=== PATIENT | female | born 1980 | race Hispanic/Latino ===

== ENCOUNTER 2017-05-28 15:07 | Emergency (ER) | payer MEDICAID ==
[2017-05-28 15:07] VITALS: BMI 20.7
[2017-05-28 15:12] VITALS: BP 144/90; PULSE 122; RESP 16; TEMP 98.3; O2SAT 94
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
== END 2017-05-28 17:10 | disposition home or self-care (01) ==
LOC: H.ER 15:07
DX: F43.20 Adjustment disorder, unspecified (principal); K50.90 Crohn's disease, unspecified, without complications; Z88.0 Allergy status to penicillin

== ENCOUNTER 2017-05-30 06:24 | Inpatient (IN) | payer MEDICAID ==
[2017-05-30 06:24] VITALS: BMI 20.7
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
[2017-05-30 08:36] LABS: BARBITURATES, UR POSITIVE (NEGATIVE); BENZODIAZEPINES, UR NEGATIVE (NEGATIVE); OPIATES, UR NEGATIVE (NEGATIVE); PHENCYCLIDINE, UR NEGATIVE (NEGATIVE)
[2017-05-30 08:37] LABS: ALB/GLOB RATIO 1.5 (1.0-2.1); ALBUMIN 4.2 g/dL (3.5-5.0); ALT/SGPT 33 U/L (9-52); AST/SGOT 23 U/L (14-36); BLOOD UREA NITROGEN 8 mg/dl (7-17); CALCIUM 8.6 mg/dL (8.4-10.2); GFR AFRICAN-AMERICAN > 60; GFR NON-AFRICAN AMERICAN > 60
[2017-05-30 08:40] LABS: BASO # 0.1 K/uL (0.0-0.2); BASO % 1.3 % (0.0-2.0); EOS % 0.1 % (0.0-4.0); HEMOGLOBIN 13.7 g/dL (12.0-16.0); LYMPH # 0.8 K/uL (1.0-4.3); MEAN CELL VOLUME 96.7 fl (81.0-99.0); MEAN CORPUSCULAR HEMOGLOBIN 33.5 pg (27.0-31.0); MEAN CORPUSCULAR HGB CONC 34.6 g/dL (33.0-37.0); MEAN PLATELET VOLUME 6.9 fl (7.2-11.7); MONO # 0.4 K/uL (0.0-0.8); MONO % 6.3 % (0.0-10.0); NEUT # 4.5 K/uL (1.8-7.0); NEUT % 78.3 % (50.0-75.0); NRBC % 0.1 % (0.0-0.0); RBC 4.1 Mil/uL (3.80-5.20); RED CELL DISTRIBUTION WIDTH 12.8 % (11.5-14.5); WHITE BLOOD COUNT 5.8 K/uL (4.8-10.8)
[2017-05-30 11:30] VITALS: O2SAT 100
--- NOTE | 2017-05-30 11:35 | CARD ---
APPROVED REPORT EKG Measurement Heart [id number] <Conclusion> Sinus rhythm with premature atrial complexes Abnormal QRS-T angle, consider primary T wave abnormality Abnormal ECG
[2017-05-30] MEDS ORDERED: DiphenhydrAMINE 50 mg/ml Inj IM PRN (13:15)
[2017-05-30] MEDS ORDERED: Alum-Mag Hydrox-Simethicone Susp (30 mL) PO PRN (13:15)
[2017-05-30] MEDS ORDERED: Magnesium Hydroxide Susp 30 ml UD PO PRN (13:15)
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
[2017-05-30] MEDS: Risperidone M tab 0.5MG PO SCH (15:41)
[2017-05-30] MEDS ORDERED: Risperidone M tab 0.5MG PO SCH (22:00)
[2017-05-30 22:07] LABS: SQUAMOUS EPITHIAL 3 /hpf (0-5); URINE BILIRUBIN NEGATIVE (NEGATIVE); URINE BLOOD NEGATIVE (NEGATIVE); URINE CLARITY SLIGHTY-CLOUDY (Clear); URINE COLOR YELLOW (YELLOW); URINE GLUCOSE (UA) NEG (Normal); URINE LEUKOCYTE ESTERASE NEG Leu/uL (Negative); URINE PROTEIN NEGATIVE (NEGATIVE)
[2017-05-31 06:13] LABS: BASO % 0.8 % (0.0-2.0); EOS % 0.3 % (0.0-4.0); HEMOGLOBIN 14.3 g/dL (12.0-16.0); LYMPH # 1.1 K/uL (1.0-4.3); LYMPH % 17.9 % (20.0-40.0); MEAN CELL VOLUME 98.4 fl (81.0-99.0); MEAN CORPUSCULAR HEMOGLOBIN 32.7 pg (27.0-31.0); MEAN CORPUSCULAR HGB CONC 33.3 g/dL (33.0-37.0); MEAN PLATELET VOLUME 6.7 fl (7.2-11.7); MONO # 0.5 K/uL (0.0-0.8); MONO % 8.7 % (0.0-10.0); NEUT # 4.3 K/uL (1.8-7.0); NEUT % 72.3 % (50.0-75.0); NRBC % 0.1 % (0.0-0.0); RBC 4.37 Mil/uL (3.80-5.20); RED CELL DISTRIBUTION WIDTH 12.9 % (11.5-14.5); WHITE BLOOD COUNT 5.9 K/uL (4.8-10.8)
[2017-05-31 06:28] LABS: LDL CHOLESTEROL 99 mg/dL (0-129)
[2017-05-31 06:34] LABS: ALB/GLOB RATIO 1.3 (1.0-2.1); ALBUMIN 4.2 g/dL (3.5-5.0); ALT/SGPT 36 U/L (9-52); AST/SGOT 21 U/L (14-36); BLOOD UREA NITROGEN 7 mg/dl (7-17); CALCIUM 9.2 mg/dL (8.4-10.2); GFR AFRICAN-AMERICAN > 60; GFR NON-AFRICAN AMERICAN > 60; HDL CHOLESTEROL 76 MG/DL (30-70); T4 8.63 ug/dl (5.5-11.0)
[2017-05-31] MEDS: Risperidone M tab 0.5MG PO SCH (08:57)
--- NOTE | 2017-05-31 10:29 | PCM.PYCHPN ---
Psychiatric Progress Note - Psychiatric Progress Note Patient seen today, length of contact: pt evaluated discussed with team chart reviewed Patient Chief Complaint: I do not need to stay in the hospital Problems Identified/Issues Discussed: pt on evaluation, continues to be very guarded, superficially cooperative, presenting with thought blocking, appears internally preoccupied, responding to internal stimuli, pt reported non command auditory hallucinations, discussed with pt the need to stay in hospital for medication stabilization, she refused, pt has signed 48hours notice requesting to be discharged,pt has limited insight into illness, deneid denied suicidal or homicidal ideations, denied command hallucinations Medical Problems: pt guarded in reference to past hx reported one hospitalization would not give details, non compliant with treatment DSM 5 Symptoms Update: major depression recurrent severe with psychotic features Medication Change: Yes (increase risperidone) Medical Record Reviewed: Yes Mental Status Examination - Cognitive Function Orientation: Person, Place Attention: Poor Concentration: Poor Association: WNL Fund of Knowledge: WNL Decription of patient's judgement and insights: poor insight fair judgment - Mood Mood: Depressed, Anxious - Affect Affect: Constricted - Speech Speech: Soft Additional comments: underproductive - Formal Thought Process Formal Thought Process: Delusions, Paranoia, Flight of ideas Psychotic Thoughts and Behaviors: pt internally preoccupied , responding to internal stimuli, non command auditory hallucinations - Homicidal Ideation Homicidal Ideation: No Goal/Treatment Plan - Goal/Treatment Plan Progress Toward Problem(s) and Goals/Treatment Plan: pt started on risperidone 0.5mg bid, lexapro 5mg daily pt signed 48 hours notice requesting discharge, pt at [facility] mental status psychotic paranoid , needs further stabilization, pt referred for screening for involuntary admission, for further stabilization
[2017-05-31] MEDS ORDERED: Risperidone M tab 1 MG PO SCH (22:00)
--- NOTE | 2017-06-01 01:48 | PCM.BM ---
<Kandy Driscoll - Last Filed: 06/01/17 01:46> Treatment Plan Problems - Problems identified on initial assessmt Delusions Date Initiated: 05/31/17 Time Initiated: 20:00 Assessment reference: NA Status: Active Guarded Behavior Date Initiated: 05/31/17 Time Initiated: 20:00 Assessment reference: NA Status: Active Treatment assets and liabiliti Patient Assests: educated, ADL independent, negotiates basic needs, cognitively intact Patient Liabilities: live alone, financial problems - Milieu Protocol Maintain good personal hygiene: daily Encourage regular showers, daily Remind patient to perform daily oral care, daily Assist patient to perform ADL's Conduct patient checks and document Observation sheet: Q15 minutes Maintain personal safety: every shift Educate patient to report safety concerns to staff, every shift Monitor environment for contraband/sharps Medication safety: Monitor for expected outcome, potential side effects: every shift, Assess barriers to learning: every shift, Assess readiness for medication education: every shift Milieu Narrative: pt started on risperidone 0.5mg bid, lexapro 5mg daily pt signed 48 hours notice requesting discharge, pt at curent mental status psychotic paranoid , needs further stabilization, pt referred for screening for involuntary admission, for further stabilization Discharge/Continuing Care - Treatment Team Participation Patient/Family/SO Statement: pt started on risperidone 0.5mg bid, lexapro 5mg daily pt signed 48 hours notice requesting discharge, pt at curent mental status psychotic paranoid , needs further stabilization, pt referred for screening for involuntary admission, for further stabilization <Brissa Reynolds - Last Filed: 06/01/17 16:26> Treatment assets and liabiliti Patient Assests: adapts well, cooperative, educated, resourceful, ADL independent, good support system, negotiates basic needs, cognitively intact Patient Liabilities: live alone, financial problems Family Contact Family involvement: Family/SO is involved Family contact: Patient agrees to contact, Family has been contacted by patient , Telephone contact initiated by staff Family contact name: Kashif(father) ([phone]) Family contacted how many times per week?: 2 Family contact comment: Photo Producer placed call to pts mother/primary support (Kashif [phone]) to discuss pts progress on 3NP, collect further collateral information and address faily concerns. Photo Producer provided psychoeducation regarding nature of tx provided on 3NP and clinical updates regarding pts progress since admission. Pts father expressed being relieved that pt decided to withdraw 48hr notice and continue stabilization on 3NP. Pts father reported having spoken to pt on phone today and stated "she sounded so much better", explaining that pts responses are more spontaneous and thought process is clearer. Pts father interested in speaking to pt about having her move in with him temporarily upon d/c for additional support and to alleviate financial strain. Photo Producer to meet with pt on 06/12 to discuss pts plans upon d/c so that appropriate aftercare can be secured. Photo Producer to continue providing clinical updates. - Goals for Treatment Patient goals for treatment: Patient to continue stabilization on 3NP through medication management and group/supportive therapy. Patient to be encouraged to attend groups regularly to promote self-awareness, reality testing,compliance and improve insight, coping skills and self-esteem. Patient to be provided with referral for appropriate level of aftercare to reduce risk of future hospitalizations and ensure safety in the community. Discharge/Continuing Care - Education Needs Education Needs: Family Medication, Family Diagnosis/Disease Process, Family Coping Skills, Family Community resources, Family Aftercare Safety Plan, Patient Medication, Patient Diagnosis/Disease Process, Patient Coping Skills, Patient Community resources, Patient Aftercare Safety Plan - Discharge Discharge Criteria: Tolerates medication w/o severe side effects, Free of Suicidal thoughts, Free of paranoid thoughts, Free of agitation, Normal sleep pattern, Ability to care for self, Reduction of target symptoms Discharge to:: Home, With Family - Treatment Team Participation Patient/Family/SO Statement: Pt attended tx team this morning and was more easily engaged in discussion regarding precursors to hospitalization, sxs and need for tx. Pt. more receptive to reality based feedback and has shown slight improvement in insight regarding admission/need for stabilization. Pt. remains internally preoccupied, guarded and suspicious on approach. Responses and thought process does appear more spontaneous than upon admission. Pt. socially withdrawn but visible on 3NP. Medication management and importance of compliance with aftercare discussed at length. 06/01/17 16:27 06/01/17 16:27 Discussed with Family/SO: Yes Was Patient/Family/SO present at Treatment Team Meeting: Yes <Rhona Pfeiffer - Last Filed: 06/03/17 14:57> - Diagnosis (1) Psychosis Status: Acute Interventions: psychotherapy pharmacotherapy 06/03/17 14:57
[2017-06-01] MEDS: Risperidone M tab 0.5MG PO SCH ×2 (08:53→21:06)
--- NOTE | 2017-06-01 15:55 | PCM.PYCHPN ---
Psychiatric Progress Note - Psychiatric Progress Note Patient seen today, length of contact: pt evaluated discussed with team chart reviewed Patient Chief Complaint: I want to get in touch with my boy friend Problems Identified/Issues Discussed: pt evaluated with the treatment team , continues to be very guarded, superficially cooperative, presenting with thought blocking, appears internally preoccupied, responding to internal stimuli, denied any current command auditory hallucinations, discussed with pt the need to stay in hospital for medication stabilization, pt agreeable to continue with treatment and with the increase in the dose of risperidone and lexapro , no reported side effects denied suicidal or homicidal ideations, seen on the unit attending groups and interacting with other patients Medical Problems: pt guarded in reference to past hx reported one hospitalization would not give details, non compliant with treatment DSM 5 Symptoms Update: major depression recurrent severe with psychotic features PTSD Medication Change: Yes (increase risperidone) Medical Record Reviewed: Yes Mental Status Examination - Cognitive Function Orientation: Person, Place Attention: Poor Concentration: Poor Association: WNL Fund of Knowledge: WNL Decription of patient's judgement and insights: poor insight fair judgment - Mood Mood: Depressed, Anxious - Affect Affect: Constricted - Speech Speech: Soft - Formal Thought Process Formal Thought Process: Delusions, Paranoia, Flight of ideas Psychotic Thoughts and Behaviors: pt internally preoccupied , responding to internal stimuli, non command auditory hallucinations - Suicidal Ideation Suicidal Ideation: No - Homicidal Ideation Homicidal Ideation: No Goal/Treatment Plan - Goal/Treatment Plan Need for Continued Stay: Severe depression anxiety, Discharge may exacerbated symptoms Progress Toward Problem(s) and Goals/Treatment Plan: risperidone 0.5mg DAILY AND 1.5MG QHS , lexapro 5mg BID cbt group and supportive therapy
[2017-06-02] MEDS: Risperidone M tab 0.5MG PO SCH ×2 (09:20→21:07)
--- NOTE | 2017-06-02 19:14 | PCM.PYCHPN ---
Psychiatric Progress Note - Psychiatric Progress Note Patient seen today, length of contact: pt evaluated discussed with team chart reviewed Patient Chief Complaint: I was very overwhelmed and I could not think right Problems Identified/Issues Discussed: pt evaluated, more cooperative and more engaged in the conversation, pt thought process less disorganized and less paranoid, reported that the illness and of her mother past year and the financial difficulties because of unemployment made her feel overwhelmed and trapped pt able to challenge the perceptual disturbances and the paranoid delusions she experienced on admission, continues to be depressed and anxious denied suicidal or homicidal ideations, denied command hallucinations, no reported side effects of medications Medical Problems: pt guarded in reference to past hx reported one hospitalization would not give details, non compliant with treatment DSM 5 Symptoms Update: major depression severe with psychotic features Medication Change: No (increase risperidone) Medical Record Reviewed: Yes Mental Status Examination - Cognitive Function Orientation: Person, Place Attention: WNL Concentration: WNL Association: [facility] Fund of Knowledge: [facility] Decription of patient's judgement and insights: fair insight fair judgment - Mood Mood: Depressed, Anxious - Affect Affect: Constricted - Speech Speech: Soft - Formal Thought Process Formal Thought Process: Delusions, Paranoia, Flight of ideas Psychotic Thoughts and Behaviors: pt showing partial clearing off of the paranoid delusions - Suicidal Ideation Suicidal Ideation: No - Homicidal Ideation Homicidal Ideation: No Goal/Treatment Plan - Goal/Treatment Plan Need for Continued Stay: Severe depression anxiety, Discharge may exacerbated symptoms Progress Toward Problem(s) and Goals/Treatment Plan: risperidone 0.5mg DAILY AND 1.5MG QHS , lexapro 5mg BID cbt group and supportive therapy
[2017-06-03] MEDS: Risperidone M tab 0.5MG PO SCH (09:39)
--- NOTE | 2017-06-03 14:36 | PCM.PYCHPN ---
Psychiatric Progress Note - Psychiatric Progress Note Patient seen today, length of contact: pt evaluated discussed with team chart reviewed Patient Chief Complaint: I think my brain was very foggy I could not think right Problems Identified/Issues Discussed: pt evaluated, more cooperative and more engaged in the conversation, less guarded and less paranoid, pt reported feeling very content as she was visited by both her father and her boyfriend yesterday, discussed with pt her diagnosis and the effect of stress on her presenting mental status on admission, pt able to verbalize the unrealistic nature of the paranoid delusions she had on admission , stating she feels her brain was foggy and now it is clearing up, showing good insight into her illness and agrees to continue with medications and therapy on discharge denied suicidal or homicidal ideations, denied command hallucinations, no reported side effects of medications Medical Problems: pt guarded in reference to past hx reported one hospitalization would not give details, non compliant with treatment DSM 5 Symptoms Update: major depression with psychotic features Medication Change: No Medical Record Reviewed: Yes Mental Status Examination - Cognitive Function Orientation: Person, Place Attention: WNL Concentration: WNL Association: WNL Fund of Knowledge: [facility] Decription of patient's judgement and insights: fair insight fair judgment - Mood Mood: Anxious, Neutral - Affect Affect: Constricted - Speech Speech: Soft - Formal Thought Process Formal Thought Process: Circumstantial Psychotic Thoughts and Behaviors: pt presenting with clearing off of the paranoid delusions - Suicidal Ideation Suicidal Ideation: No - Homicidal Ideation Homicidal Ideation: No Goal/Treatment Plan - Goal/Treatment Plan Need for Continued Stay: Severe depression anxiety, Discharge may exacerbated symptoms Progress Toward Problem(s) and Goals/Treatment Plan: risperidone 2mg qhs , lexapro 10mg daily cbt group and supportive therapy Estimated Date of D/C: 06/05/17
[2017-06-03 18:22] VITALS: TEMP 97.9
[2017-06-04 08:25] VITALS: BP 112/66; PULSE 89; RESP 112
--- NOTE | 2017-06-04 09:08 | PCM.PYCHPN ---
Psychiatric Progress Note - Psychiatric Progress Note Patient seen today, length of contact: pt evaluated discussed with team chart reviewed Patient Chief Complaint: pt was admitted for depression stemming from of mother and loosing her job and has been improved and stabilized with lexapro and risperdal.pt denies suicidal ideation.pr denies any hallucinations and has good insight and good judgement looking forward to find a job and get her life together. Medication Change: No Medical Record Reviewed: Yes Mental Status Examination - Cognitive Function Orientation: Person, Place Attention: WNL Concentration: WNL Association: WNL Fund of Knowledge: WNL - Mood Mood: Neutral - Affect Affect: Broad - Speech Speech: Soft - Formal Thought Process Formal Thought Process: Other - Suicidal Ideation Suicidal Ideation: No - Homicidal Ideation Homicidal Ideation: No Goal/Treatment Plan - Goal/Treatment Plan Need for Continued Stay: Severe depression anxiety, Discharge may exacerbated symptoms Progress Toward Problem(s) and Goals/Treatment Plan: pt has been improved and stabilized with therapy and meds tolerating it well. will have family session today to further discuss her disposition and discharge planning. Estimated Date of D/C: 06/05/17
== END 2017-06-04 16:30 | disposition home or self-care (01) | DRG 430 ==
LOC: H.ER 06:24 → H.ERHOLD 08:11 → H.PSYCH 11:38
PROVIDERS: ADMIT Psychiatry & Neurology Psychiatry; ATTEND Psychiatry & Neurology Psychiatry
PROC: GZHZZZZ Group Psychotherapy (ICD-10-PCS; principal; 2017-05-31)
PROC: GZ51ZZZ Individual Psychotherapy, Behavioral (ICD-10-PCS; 2017-05-31)
PROC: GZ72ZZZ Family Psychotherapy (ICD-10-PCS; 2017-06-04)
DX: F33.3 Major depressive disorder, recurrent, severe with psychotic symptoms (principal); F43.20 Adjustment disorder, unspecified; K50.90 Crohn's disease, unspecified, without complications; F41.9 Anxiety disorder, unspecified; G43.909 Migraine, unspecified, not intractable, without status migrainosus; F43.10 Post-traumatic stress disorder, unspecified; Z91.19 Patient's noncompliance with other medical treatment and regimen